=== PATIENT | female | born 1965 | race Caucasian/White ===

== ENCOUNTER → 2018-05-31 | Outpatient (CLI) | payer BC, OTHER ==
[~2018-05-31] MED LIST: FLONASE 0.05%50 MCG NASAL; MUCINEX TA600 MG/TA2 PO; RELPAX20 MG PO; ZOFRAN ODT4 MG PO; ZPAK PO; ZYRTEC10 M5 PO
== END ==
LOC: RAD 11:21
DX: Z12.31 Encounter for screening mammogram for malignant neoplasm of breast (principal)

== ENCOUNTER → 2020-01-02 | Outpatient (CLI) | payer BC, OTHER | LOC: BC 09:28 | PROVIDERS: ATTEND Family Medicine | DX: Z12.31 Encounter for screening mammogram for malignant neoplasm of breast (principal) ==